=== PATIENT | female | born 1995 | race Caucasian/White ===

== ENCOUNTER 2023-02-22 06:21 | Emergency (ER) | payer OTHER ==
[2023-02-22 06:31] VITALS: BMI 37.2
[2023-02-22] MEDS ORDERED: FENTANYL CITRATE/PF 50 MCG/ML VIAL ONE (09:05)
[2023-02-22] MEDS ORDERED: CLINDAMYCIN HCL 150 MG CAPSULE (FP) PO ONE (09:30)
[2023-02-22 09:31] VITALS: BP 118/72; PULSE 94; RESP 18; TEMP 98.9
[2023-02-22] MEDS ORDERED: CLINDAMYCIN HCL 150 MG CAPSULE (FP) ONE (09:57)
== END 2023-02-22 10:13 | disposition home or self-care (01) ==
LOC: JER 06:21
PROC: 0H98XZZ Drainage of Buttock Skin, External Approach (ICD-10-PCS; principal; 2023-02-22)
PROC: 3E033GC Introduction of Other Therapeutic Substance into Peripheral Vein, Percutaneous Approach (ICD-10-PCS; 2023-02-22)
DX: L02.31 Cutaneous abscess of buttock (principal)
CPT/HCPCS: 87070; 87186; 87205; 99284-25

== ENCOUNTER 2024-05-23 07:48 | Emergency (ER) | payer OTHER ==
[2024-05-23 07:56] VITALS: BP 120/67; PULSE 70; RESP 20; TEMP 98.6; BMI 36.3
[2024-05-23 08:45] LABS: EPI CELLS 4 /uL (0-25.1); HYALINE CASTS 1 /uL (0-3.1); PH,URINE 5.5 (5.0-8.0); URINE APPEARANCE CLEAR; URINE BACTERIA 296 /uL (0-1359); URINE BILIRUBIN NEGATIVE (NEGATIVE); URINE COLOR YELLOW; URINE GLUCOSE (UA) NEGATIVE (NEGATIVE); URINE KETONE NEGATIVE (NEGATIVE); URINE LEUK ESTERASE NEGATIVE (NEGATIVE); URINE NITRITE NEGATIVE (NEGATIVE); URINE PROTEIN NEGATIVE (NEGATIVE); URINE RBC 32 /uL (0-23.9); URINE UROBILINOGEN 0.2 mg/dL (0.2-1.0); URINE WBC 7 /uL (0-25.8)
[2024-05-23 08:50] LABS: HCG,QUALITATIVE URINE NEGATIVE
[2024-05-23] MEDS ORDERED: FAMOTIDINE 20 MG/50 ML IVPB 20 MG/50 ML MG IVPB ONE ×2 (08:51→09:04)
[2024-05-23] MEDS: SODIUM CHLORIDE 1,000 ML IV STA (09:09)
[2024-05-23] MEDS: FAMOTIDINE 20 MG/50 ML IVPB 20 MG/50 ML MG IVPB ONE (09:09)
[2024-05-23 09:15] LABS: BASO % 0.4 % (0-2.0); EOS % 0.1 % (0-4.5); HEMATOCRIT 41.2 % (32.4-45.2); HEMOGLOBIN 14.2 GM/dL (10.7-15.3); LYMPH % 21.4 % (8-40); MCH 30.2 pg (25.7-33.7); MCHC 34.4 g/dl (32.0-36.0); MEAN CELL VOLUME 87.8 fl (80-96); MEAN PLT VOLUME 7.7 fl (7.5-11.1); MONO % 5.9 % (3.8-10.2); NEUT % 72.2 % (42.8-82.8); PLATELET COUNT 329 10^3/uL (134-434); RBC 4.69 M/mm3 (3.60-5.2); RDW 12.8 % (11.6-15.6); WHITE BLOOD COUNT 9.5 K/mm3 (4.0-10.0)
[2024-05-23 09:33] LABS: POTASSIUM 4.3 mmol/L (3.5-5.1)
[2024-05-23 09:37] LABS: YEAST NONE SEEN (NEGATIVE)
[2024-05-23 09:37] LABS: ALBUMIN 4.2 g/dl (3.4-5.0); BLOOD UREA NITROGEN 9.5 mg/dL (7-18); CALCIUM 9.9 mg/dL (8.5-10.1); MAGNESIUM 2.3 mg/dL (1.8-2.4)
[2024-05-23 09:40] LABS: CREATININE 0.9 mg/dL (0.55-1.3)
[2024-05-23 09:42] LABS: BILIRUBIN,TOTAL 0.5 mg/dL (0.2-1); TOT PROT 8.5 g/dl (6.4-8.2)
== END 2024-05-23 11:54 | disposition home or self-care (01) ==
LOC: JER 07:48
PROC: 3E033GC Introduction of Other Therapeutic Substance into Peripheral Vein, Percutaneous Approach (ICD-10-PCS; principal; 2024-05-23)
DX: R10.84 Generalized abdominal pain (principal); K62.5 Hemorrhage of anus and rectum
CPT/HCPCS: 36415; 80053; 81003; 83690; 83735; 84703; 85025; 99284-25